=== PATIENT | male | born 1975 | race Two or more races ===

== ENCOUNTER 2023-10-24 23:12 | Emergency (ER) | payer MEDICAID, OTHER ==
[~2023-10-24] VITALS: Ht 190.5 cm; Wt 95.4 kg
[2023-10-24 23:18] VITALS: BP 149/84; PULSE 85; RESP 18; TEMP 98.6; O2SAT 95
[2023-10-25] MEDS ORDERED: BUPR8SUB18 SL (02:22)
== END 2023-10-25 02:33 | disposition home or self-care (01) ==
LOC: ER 23:12
DX: F11.23 Opioid dependence with withdrawal (principal); Z76.0 Encounter for issue of repeat prescription; Z59.00 Homelessness unspecified

== ENCOUNTER 2023-10-26 08:07 | Emergency (ER) | payer MEDICAID ==
[~2023-10-26] VITALS: Ht 182.9 cm; Wt 82.0 kg
[~2023-10-26 08:07] MED LIST: BUPR8SUB18 SL
[2023-10-26 08:40] VITALS: RESP 15; O2SAT 98
[2023-10-26] MEDS: KETOROLAC TROMETH 30 MG/ML 1ML VIAL IV ONE (08:40)
[2023-10-26 08:43] VITALS: BP 114/72; PULSE 72; RESP 15; TEMP 98; O2SAT 95
== END 2023-10-26 09:33 | disposition home or self-care (01) ==
LOC: EDBD 08:07 → ER 08:20
DX: S20.211A Contusion of right front wall of thorax, initial encounter (principal); F15.90 Other stimulant use, unspecified, uncomplicated; F17.210 Nicotine dependence, cigarettes, uncomplicated; Z98.890 Other specified postprocedural states; Z88.0 Allergy status to penicillin; Z79.899 Other long term (current) drug therapy; V19.88XA Pedal cyclist (driver) (passenger) injured in other specified transport accidents, initial encounter; Y93.89 Activity, other specified; Y92.89 Other specified places as the place of occurrence of the external cause; Y99.8 Other external cause status
CPT/HCPCS: 71046; 93005; 96374; 99283; J1885